=== PATIENT | male | born 1960 ===

== ENCOUNTER 2017-08-31 12:24 | Emergency (ER) | payer OTHER ==
[~2017-08-31] VITALS: Ht 175.3 cm; Wt 81.6 kg
[2017-08-31] MEDS ORDERED: ASPIR 8181 MG (12:34)
[2017-09-01] MEDS ORDERED: NIFEDIPINE ER30 MG PO (08:52)
[2017-09-01] MEDS ORDERED: AVAPRO75 MG PO (08:52)
== END 2017-09-01 09:18 | disposition home or self-care (01) ==
LOC: ER 12:24 → CPU-OBS 12:49 → ER 09-01 09:18
DX: I10 Essential (primary) hypertension (principal); R07.89 Other chest pain; R51 Headache
CPT/HCPCS: G0378; G0379; 70450; 93005